=== PATIENT | female | born 1970 | race Caucasian/White ===

== ENCOUNTER 2016-07-06 13:47 | Emergency (ER) | payer OTHER ==
[~2016-07-06] VITALS: Ht 165.1 cm; Wt 61.1 kg
[~2016-07-06 13:47] MED LIST: ALBUTEROL SULF8.5 GM IH; AMPHETAMINE SAL20 MG PO; AMPHETAMINE SALT5 MG PO; ATARAX,VISTARIL25 MG PO; ATARAX,VISTARIL50 MG PO; ATORVASTATIN CA40 MG PO; AVENTYL,PAMELOR25 MG PO; Atarax,Vistaril PO; BACLOFEN20 MG PO; BACTRIM,SEPT1 TABLET PO; BENTYL20 MG PO; CEFDINIR300 MG PO; CLONAZEPAM1 MG PO; CLONIDINE HCL0.1 MG PO; CLOPIDOGREL75 MG PO; COLACE100 MG PO; COLD PACK1 EACH MC; CORTISONE57 GM TP; COUMADIN,JANTO7.5 MG PO; COUMADIN,JANTOV10 MG; COUMADIN,JANTOV10 MG PO; COUMADIN,JANTOVE4 MG PO; DIAZEPAM10 MG PO; DIAZEPAM5 MG PO; DICLOFENAC SODI50 MG PO; DOLOPHINE HCL10 MG PO; DOXYCYCLINE HY100 M3 PO; DURAGESIC1 EAC1; DURAGESIC25 MCG TD; FAMOTIDINE10 MG PO; FLEXERIL10 MG PO; FLEXERIL5 MG PO; GABAPENTIN100 M1 PO; GABAPENTIN300 MG PO; GABAPENTIN800 MG PO; HABITROL,NICODE21 MG TD; HYDROXYZINE HCL50 MG PO; KEFLEX500 MG PO; KLONOPIN0.5 M1 PO; KLONOPIN1 MG PO; KLONOPIN2 MG PO; Klonopin PO; LAMOTRIGINE25 M2 PO; LIDODERM 5% P1 PATCH TD; LIORESAL10 MG PO; LIPITOR20 MG PO; LOPRESSOR25 MG PO; LORAZEPAM1 MG PO; Lamotrigine PO; METHADONE; METHADONE H5 MG/5 ML PO; METHADONE HCL40 MG PO; METHADONE1 MG/1 ML PO; METHADONE10 MG PO; METHADONE10 MG/1 M1 PO; METOPROLOL SUCC50 MG PO; MIRALAX17 GM PO; MOTRIN600 MG PO; NAPROXEN500 MG PO; NEURONTIN300 MG PO; NEURONTIN400 M1 PO; NEURONTIN600 M1; NEURONTIN600 MG PO; NICOTINE PATCH1 EAC2 TD; NORTRIPTYLINE H25 MG PO; NORTRIPTYLINE HCL PO; Neurontin PO; OXYCODONE HCL5 M1 PO; PEPCID AC PO; PERCOCET 5/31 TABLET PO; PRAVASTATIN SOD80 MG PO; PREDNISONE10 MG PO; PREDNISONE20 MG PO; PROAIR HFA8.5 GM IH; PROVENTIL17 GM IH; QUETIAPINE FUM400 MG PO; SENOKOT8.6 MG PO; SEROQUEL XR400 MG PO; SEROQUEL100 MG PO; SEROQUEL200 MG PO; SEROQUEL400 MG; SEROQUEL400 MG PO; SIMVASTATIN5 MG PO; SINGULAIR10 MG PO; Singulair PO; TESSALON PERLE100 MG PO; TYLENOL WITH C1 EACH PO; VOLTAREN50 MG PO; WESTCORT15 G1 TP; ZANTAC150 M1 PO; ZANTAC150 MG PO; ZITHROMAX Z-PA250 MG PO; ZITHROMAX250 MG PO; ZOFRAN ODT4 MG PO; ZYRTEC10 M2 PO; Zocor PO
[2016-07-06 14:49] LABS: MCH 32.5 PG (29.0-34.0); MCHC 33.7 G/DL (30.0-36.0); MCV 96.4 FL (83-99); RBC DIS.WIDTH-SD 47.3 % (39-53); RED BLOOD COUNT 3.94 M/uL (3.80-5.20); WHITE BLOOD COUNT 5.3 K/uL (4.1-10.2)
[2016-07-06 14:51] LABS: MEAN PLAT.VOLUME 9.4 uM^3 (9.5-12.4)
[2016-07-06 14:56] LABS: PLATELET COUNT 296 K/uL (156-360)
[2016-07-06 14:57] LABS: CHLORIDE 106 mEq/L (99-109); POTASSIUM 3.8 mEq/L (3.7-5.4); SODIUM 139 mEq/L (136-147)
[2016-07-06 14:59] LABS: GLUCOSE 90 mg/dL (70-99)
[2016-07-06 15:00] LABS: ANION GAP 7 MEQ/L (2-14)
[2016-07-06 15:01] LABS: TOTAL BILIRUBIN 0.2 mg/dL (0.0-1.0)
[2016-07-06 15:02] LABS: SERUM ETHYL ALCOHOL < 10 mg/dL
[2016-07-06 15:03] LABS: ALKALINE PHOSPHATASE 153 IU/L (3-129); GFR ESTIMATE (CALCULATED) > 59 mL/min/
[2016-07-06 15:04] LABS: UREA NITROGEN (BUN) 7 mg/dL (9-23)
[2016-07-06 18:44] VITALS: BP 180/80
== END 2016-07-06 18:47 | disposition home or self-care (01) ==
LOC: EME 13:47
PROVIDERS: Emergency Medicine
DX: F11.20 Opioid dependence, uncomplicated (principal); F41.9 Anxiety disorder, unspecified; F17.200 Nicotine dependence, unspecified, uncomplicated; J45.909 Unspecified asthma, uncomplicated; Z86.73 Personal history of transient ischemic attack (TIA), and cerebral infarction without residual deficits; Z88.6 Allergy status to analgesic agent
CPT/HCPCS: 80053; 81003; 85027; 90837; 99281; 99285; G0480; J2310; J7030

== ENCOUNTER 2016-07-18 16:21 | Emergency (ER) | payer OTHER ==
[~2016-07-18] VITALS: Ht 170.2 cm; Wt 63.3 kg
[2016-07-18] MEDS ORDERED: SEROQUEL XR400 MG PO (16:41)
[2016-07-18 17:24] LABS: HEMATOCRIT 41.7 % (36.0-46.0); MCH 32.6 PG (29.0-34.0); MCHC 34.1 G/DL (30.0-36.0); MCV 95.6 FL (83-99); MEAN PLAT.VOLUME 9.5 uM^3 (9.5-12.4); PLATELET COUNT 252 K/uL (156-360); RBC DIS.WIDTH-CV 13.6 % (11.8-14.6); RBC DIS.WIDTH-SD 45.3 % (39-53); RED BLOOD COUNT 4.36 M/uL (3.80-5.20); WHITE BLOOD COUNT 6.7 K/uL (4.1-10.2)
[2016-07-18 17:41] LABS: CHLORIDE 102 mEq/L (99-109); POTASSIUM 3.7 mEq/L (3.7-5.4); SODIUM 140 mEq/L (136-147)
[2016-07-18 17:43] LABS: GLUCOSE 95 mg/dL (70-99)
[2016-07-18 17:44] LABS: ANION GAP 12 MEQ/L (2-14)
[2016-07-18 17:45] LABS: TOTAL BILIRUBIN 0.3 mg/dL (0.0-1.0)
[2016-07-18 17:46] LABS: SERUM ETHYL ALCOHOL < 10 mg/dL
[2016-07-18 17:47] LABS: ALKALINE PHOSPHATASE 112 IU/L (3-129); GFR ESTIMATE (CALCULATED) > 59 mL/min/
[2016-07-18 17:48] LABS: UREA NITROGEN (BUN) 13 mg/dL (9-23)
[2016-07-18 20:44] LABS: ADD MIUA? YES; BILIRUBIN NEGATIVE; BLOOD NEGATIVE; COLOR YELLOW ((YELLOW)); GLUCOSE (STRIP) NEGATIVE; KETONES NEGATIVE; LEUKOCYTES NEGATIVE; NITRITE NEGATIVE; PH, URINE 6.5 (5-8); PROTEIN (STRIP) TRACE; SPECIFIC GRAVITY 1.021 (1.000-1.030)
[2016-07-18 21:01] LABS: AMPHETAMINE NEGATIVE (500 ng/mL); BARBITURATES NEGATIVE (200 ng/mL); BENZODIAZEPINES NEGATIVE (150 ng/mL); COCAINE NEGATIVE (150 ng/mL); INTERNAL CONTROLS VALID? YES; METHADONE PRESUMPTIVE POSITIVE (200 ng/mL); METHAMPHETAMINE NEGATIVE (500 ng/mL); OPIATES (MORPHINE) NEGATIVE (100 ng/mL); OXYCODONE NEGATIVE (100 ng/mL); PHENCYCLIDINE NEGATIVE (25 ng/mL); PROPOXYPHENE NEGATIVE (300 ng/mL); THC CANNABINOIDS NEGATIVE (50 ng/mL); TRICYCLIC ANTIDEPRESSANTS PRESUMPTIVE POSITIVE (300 ng/mL)
[2016-07-18 21:14] LABS: BACTERIA 4+
[2016-07-18 21:15] LABS: CASTS NONE SEEN /LPF; CRYSTALS NONE SEEN; EPITHELIAL CELLS 1+; MUCUS 1+; RED BLOOD CELLS 0-5 /HPF (0-5); WHITE BLOOD CELLS 0-5 /HPF (0-5)
[2016-07-18 22:15] VITALS: BP 110/76
== END 2016-07-18 22:42 | disposition home or self-care (01) ==
LOC: EME → EDBD 16:21 → EME 16:21
PROVIDERS: Emergency Medicine
DX: G40.909 Epilepsy, unspecified, not intractable, without status epilepticus (principal); J45.909 Unspecified asthma, uncomplicated; Z95.1 Presence of aortocoronary bypass graft; Z86.73 Personal history of transient ischemic attack (TIA), and cerebral infarction without residual deficits; Z86.718 Personal history of other venous thrombosis and embolism; F17.200 Nicotine dependence, unspecified, uncomplicated
CPT/HCPCS: 70450; 80053; 81003; 85027; 93005; 99281; 99285; G0480; J7030

== ENCOUNTER 2016-08-20 11:48 | Emergency (ER) | payer OTHER ==
[~2016-08-20] VITALS: Ht 165.1 cm; Wt 63.6 kg
[2016-08-20 13:06] LABS: HEMATOCRIT 40.6 % (36.0-46.0); MCH 31.9 PG (29.0-34.0); MCHC 33.5 G/DL (30.0-36.0); MCV 95.3 FL (83-99); MEAN PLAT.VOLUME 9.6 uM^3 (9.5-12.4); PLATELET COUNT 273 K/uL (156-360); RBC DIS.WIDTH-CV 13.8 % (11.8-14.6); RED BLOOD COUNT 4.26 M/uL (3.80-5.20); WHITE BLOOD COUNT 7.3 K/uL (4.1-10.2)
[2016-08-20 13:18] LABS: CHLORIDE 101 mEq/L (99-109)
[2016-08-20 13:19] LABS: GLUCOSE 101 mg/dL (70-99); POTASSIUM 4.2 mEq/L (3.7-5.4); SODIUM 139 mEq/L (136-147)
[2016-08-20 13:21] LABS: ANION GAP 11 MEQ/L (2-14)
[2016-08-20 13:23] LABS: GFR ESTIMATE (CALCULATED) > 59 mL/min/
[2016-08-20 13:24] LABS: UREA NITROGEN (BUN) 10 mg/dL (9-23)
[2016-08-20 13:40] LABS: PHENOBARBITAL < 5.0 MCG/ML (15-40)
[2016-08-20 14:45] VITALS: BP 105/83
== END 2016-08-20 15:32 | disposition home or self-care (01) ==
LOC: EME 11:48
DX: R56.9 Unspecified convulsions (principal); F41.9 Anxiety disorder, unspecified; J45.909 Unspecified asthma, uncomplicated; I69.351 Hemiplegia and hemiparesis following cerebral infarction affecting right dominant side; Z86.718 Personal history of other venous thrombosis and embolism; Z95.1 Presence of aortocoronary bypass graft; F17.200 Nicotine dependence, unspecified, uncomplicated
CPT/HCPCS: 80048; 80156; 80184; 80185; 81003; 85027; 99281; 99285

== ENCOUNTER 2016-08-23 19:57 | Emergency (ER) | payer OTHER ==
[~2016-08-23] VITALS: Ht 162.6 cm; Wt 59.1 kg
[2016-08-23 21:21] LABS: EOSINOPHIL (%) 0.8 % (0-5); EOSINOPHIL COUNT 0.1 K/uL (0-0.3); HEMATOCRIT 38.6 % (36.0-46.0); IMMATURE GRANULOCYTE (%) 0.1 % (0.0-0.7); IMMATURE GRANULOCYTE COUNT 0.1 K/uL; LYMPHOCYTE COUNT 1.7 K/uL (1.0-2.8); MCH 32.4 PG (29.0-34.0); MCHC 34.2 G/DL (30.0-36.0); MCV 94.6 FL (83-99); MEAN PLAT.VOLUME 9.2 uM^3 (9.5-12.4); MONOCYTE (%) 6.6 % (3-12); MONOCYTE COUNT 0.5 K/uL (0-0.8); NEUTROPHIL (%) 69.2 % (45-76); NEUTROPHIL COUNT 5.1 K/uL (1.8-6.4); PLATELET COUNT 271 K/uL (156-360); RBC DIS.WIDTH-CV 13.9 % (11.8-14.6); RBC DIS.WIDTH-SD 46.1 % (39-53); RED BLOOD COUNT 4.08 M/uL (3.80-5.20); WHITE BLOOD COUNT 7.4 K/uL (4.1-10.2)
[2016-08-23 21:31] LABS: CHLORIDE 104 mEq/L (99-109); POTASSIUM 3.7 mEq/L (3.7-5.4); SODIUM 142 mEq/L (136-147)
[2016-08-23 21:34] LABS: GLUCOSE 112 mg/dL (70-99)
[2016-08-23 21:35] LABS: ANION GAP 11 MEQ/L (2-14)
[2016-08-23 21:36] LABS: TOTAL BILIRUBIN 0.4 mg/dL (0.0-1.0)
[2016-08-23 21:37] LABS: SERUM ETHYL ALCOHOL < 10 mg/dL
[2016-08-23 21:38] LABS: ALKALINE PHOSPHATASE 99 IU/L (3-129); GFR ESTIMATE (CALCULATED) > 59 mL/min/
[2016-08-23 21:39] LABS: UREA NITROGEN (BUN) 14 mg/dL (9-23)
[2016-08-23 21:41] LABS: SALICYLATE < 5.0 MG/DL (15-30)
[2016-08-23 21:49] LABS: QUANTITATIVE HCG < 4.0 MIU/ML
[2016-08-23 23:03] LABS: ADD MIUA? YES; BILIRUBIN NEGATIVE; BLOOD NEGATIVE; COLOR YELLOW ((YELLOW)); GLUCOSE (STRIP) NEGATIVE; KETONES NEGATIVE; LEUKOCYTES TRACE; NITRITE NEGATIVE; PROTEIN (STRIP) 30; SPECIFIC GRAVITY 1.025 (1.000-1.030); UROBILINOGEN 0.2 MG/DL (0.2-1.0)
[2016-08-23 23:14] LABS: PHENCYCLIDINE NEGATIVE (25 ng/mL); THC CANNABINOIDS NEGATIVE (50 ng/mL)
[2016-08-23 23:15] LABS: AMPHETAMINE PRESUMPTIVE POSITIVE (500 ng/mL); BARBITURATES NEGATIVE (200 ng/mL); BENZODIAZEPINES NEGATIVE (150 ng/mL); COCAINE NEGATIVE (150 ng/mL); INTERNAL CONTROLS VALID? YES; METHADONE PRESUMPTIVE POSITIVE (200 ng/mL); METHAMPHETAMINE NEGATIVE (500 ng/mL); OPIATES (MORPHINE) NEGATIVE (100 ng/mL); OXYCODONE NEGATIVE (100 ng/mL); PROPOXYPHENE NEGATIVE (300 ng/mL); TRICYCLIC ANTIDEPRESSANTS PRESUMPTIVE POSITIVE (300 ng/mL)
[2016-08-23 23:16] LABS: ADD MEDTOX COMMENT Y
[2016-08-23 23:34] LABS: BACTERIA RARE /HPF; EPITHELIAL CELLS RARE /HPF; MUCUS TRACE /LPF; RED BLOOD CELLS 0-5 /HPF (0-5); UCUL ADDED? NO; WHITE BLOOD CELLS 0-5 /HPF (0-5)
[2016-08-24 01:37] VITALS: BP 113/76
== END 2016-08-24 02:07 | disposition home or self-care (01) ==
LOC: EME → EDBD 19:57 → EME 19:57
PROVIDERS: Emergency Medicine
DX: R41.82 Altered mental status, unspecified (principal); F31.9 Bipolar disorder, unspecified; F41.9 Anxiety disorder, unspecified; G40.909 Epilepsy, unspecified, not intractable, without status epilepticus
CPT/HCPCS: 70450; 80053; 81003; 84702; 84999; 85025; 90837; 99281; 99285; G0480; J2060

== ENCOUNTER 2016-08-26 10:04 | Emergency (ER) | payer OTHER ==
[~2016-08-26] VITALS: Ht 162.6 cm; Wt 60.7 kg
[2016-08-26 10:42] LABS: HEMATOCRIT 39.4 % (36.0-46.0); MCH 32.1 PG (29.0-34.0); MCHC 33.5 G/DL (30.0-36.0); MCV 95.9 FL (83-99); MEAN PLAT.VOLUME 9.6 uM^3 (9.5-12.4); PLATELET COUNT 252 K/uL (156-360); RBC DIS.WIDTH-SD 46.9 % (39-53); RED BLOOD COUNT 4.11 M/uL (3.80-5.20); WHITE BLOOD COUNT 5.3 K/uL (4.1-10.2)
[2016-08-26 10:50] LABS: CHLORIDE 108 mEq/L (99-109); POTASSIUM 3.4 mEq/L (3.7-5.4); SODIUM 142 mEq/L (136-147)
[2016-08-26 10:53] LABS: GLUCOSE 116 mg/dL (70-99)
[2016-08-26 10:54] LABS: ANION GAP 9 MEQ/L (2-14)
[2016-08-26 10:55] LABS: SERUM ETHYL ALCOHOL < 10 mg/dL
[2016-08-26 10:56] LABS: ALKALINE PHOSPHATASE 103 IU/L (3-129); GFR ESTIMATE (CALCULATED) > 59 mL/min/
[2016-08-26 10:57] LABS: UREA NITROGEN (BUN) 17 mg/dL (9-23)
[2016-08-26 11:00] LABS: TOTAL BILIRUBIN 0.5 mg/dL (0.0-1.0)
[2016-08-26 12:37] VITALS: BP 111/65
== END 2016-08-26 12:38 | disposition home or self-care (01) ==
LOC: EME 10:04
PROVIDERS: Emergency Medicine
DX: F41.1 Generalized anxiety disorder (principal)
CPT/HCPCS: 80053; 81003; 85027; 99281; 99284; G0480

== ENCOUNTER 2016-12-18 02:17 | Emergency (ER) | payer OTHER ==
[~2016-12-18] VITALS: Ht 165.1 cm; Wt 60.8 kg
[2016-12-18 03:06] LABS: HEMATOCRIT 39.3 % (36.0-46.0); MCH 32.4 PG (29.0-34.0); MCHC 34.4 G/DL (30.0-36.0); MCV 94.2 FL (83-99); MEAN PLAT.VOLUME 10.1 uM^3 (9.5-12.4); PLATELET COUNT 333 K/uL (156-360); RBC DIS.WIDTH-CV 13.2 % (11.8-14.6); RBC DIS.WIDTH-SD 45.4 % (39-53); RED BLOOD COUNT 4.17 M/uL (3.80-5.20); WHITE BLOOD COUNT 10.1 K/uL (4.1-10.2)
[2016-12-18 03:19] LABS: CHLORIDE 103 mEq/L (99-109); POTASSIUM 3.1 mEq/L (3.7-5.4); SODIUM 139 mEq/L (136-147)
[2016-12-18 03:21] LABS: GLUCOSE 110 mg/dL (70-99)
[2016-12-18 03:22] LABS: ANION GAP 11 MEQ/L (2-14)
[2016-12-18 03:23] LABS: TOTAL BILIRUBIN 0.2 mg/dL (0.0-1.0)
[2016-12-18 03:24] LABS: SERUM ETHYL ALCOHOL < 10 mg/dL
[2016-12-18 03:25] LABS: ALKALINE PHOSPHATASE 109 IU/L (3-129); GFR ESTIMATE (CALCULATED) > 59 mL/min/
[2016-12-18 03:27] LABS: UREA NITROGEN (BUN) 12 mg/dL (9-23)
[2016-12-18 03:28] LABS: SALICYLATE < 5.0 MG/DL (15-30)
[2016-12-18 03:29] LABS: LIPASE 35 U/L (1.0-51.0)
[2016-12-18 03:37] LABS: QUANTITATIVE HCG < 4.0 MIU/ML
[2016-12-18 04:49] LABS: ADD MIUA? NO; BILIRUBIN NEGATIVE; BLOOD NEGATIVE; COLOR YELLOW ((YELLOW)); GLUCOSE (STRIP) NEGATIVE; KETONES 5; LEUKOCYTES NEGATIVE; NITRITE NEGATIVE; PROTEIN (STRIP) NEGATIVE; SPECIFIC GRAVITY 1.023 (1.000-1.030); UCUL ADDED? NO; UROBILINOGEN 0.2 MG/DL (0.2-1.0)
[2016-12-18 05:00] LABS: AMPHETAMINE PRESUMPTIVE POSITIVE (500 ng/mL); BARBITURATES NEGATIVE (200 ng/mL); BENZODIAZEPINES NEGATIVE (150 ng/mL); COCAINE NEGATIVE (150 ng/mL); INTERNAL CONTROLS VALID? YES; METHADONE PRESUMPTIVE POSITIVE (200 ng/mL); METHAMPHETAMINE NEGATIVE (500 ng/mL); OPIATES (MORPHINE) NEGATIVE (100 ng/mL); OXYCODONE NEGATIVE (100 ng/mL); PHENCYCLIDINE NEGATIVE (25 ng/mL); PROPOXYPHENE NEGATIVE (300 ng/mL); THC CANNABINOIDS NEGATIVE (50 ng/mL); TRICYCLIC ANTIDEPRESSANTS NEGATIVE (300 ng/mL)
[2016-12-18 05:01] LABS: ADD MEDTOX COMMENT Y
[2016-12-18 08:11] VITALS: BP 100/60
== END 2016-12-18 08:11 | disposition home or self-care (01) ==
LOC: EME 02:17
PROVIDERS: Emergency Medicine
DX: F11.23 Opioid dependence with withdrawal (principal); F19.10 Other psychoactive substance abuse, uncomplicated; F31.30 Bipolar disorder, current episode depressed, mild or moderate severity, unspecified; J45.909 Unspecified asthma, uncomplicated; R56.9 Unspecified convulsions; Z86.73 Personal history of transient ischemic attack (TIA), and cerebral infarction without residual deficits; Z86.718 Personal history of other venous thrombosis and embolism; Z95.1 Presence of aortocoronary bypass graft; F17.200 Nicotine dependence, unspecified, uncomplicated
CPT/HCPCS: 74177; 80053; 81003; 83690; 84702; 84999; 85027; 93005; 99281; 99284; G0480; J2405; J7030

== ENCOUNTER 2016-12-24 23:11 | Emergency (ER) | payer OTHER ==
[~2016-12-24] VITALS: Ht 165.1 cm; Wt 61.3 kg
[2016-12-25 00:07] LABS: BASOPHIL COUNT 0.1 K/uL (0-0.1); EOSINOPHIL (%) 1.5 % (0-5); EOSINOPHIL COUNT 0.1 K/uL (0-0.3); HEMATOCRIT 38.7 % (36.0-46.0); IMMATURE GRANULOCYTE (%) 0.3 % (0.0-0.7); INSTRUMENT ABS NEUTROPHIL CT 5.8 K/uL; LYMPHOCYTE COUNT 2.3 K/uL (1.0-2.8); MCH 32.2 PG (29.0-34.0); MCHC 33.3 G/DL (30.0-36.0); MCV 96.5 FL (83-99); MEAN PLAT.VOLUME 9.3 uM^3 (9.5-12.4); MONOCYTE (%) 5.6 % (3-12); MONOCYTE COUNT 0.5 K/uL (0-0.8); NEUTROPHIL (%) 65.9 % (45-76); NEUTROPHIL COUNT 5.8 K/uL (1.8-6.4); PLATELET COUNT 278 K/uL (156-360); RBC DIS.WIDTH-CV 13.9 % (11.8-14.6); RBC DIS.WIDTH-SD 49.4 % (39-53); RED BLOOD COUNT 4.01 M/uL (3.80-5.20); WHITE BLOOD COUNT 8.7 K/uL (4.1-10.2)
[2016-12-25 00:19] LABS: INTER. NORMALIZED RATIO 1.1; PTT 27.5 (25-32)
[2016-12-25 00:22] LABS: CHLORIDE 99 mEq/L (99-109); POTASSIUM 3.3 mEq/L (3.7-5.4); SODIUM 138 mEq/L (136-147)
[2016-12-25 00:23] LABS: GLUCOSE 127 mg/dL (70-99)
[2016-12-25 00:25] LABS: ANION GAP 11 MEQ/L (2-14)
[2016-12-25 00:27] LABS: GFR ESTIMATE (CALCULATED) > 59 mL/min/
[2016-12-25 00:28] LABS: UREA NITROGEN (BUN) 11 mg/dL (9-23)
[2016-12-25 00:34] LABS: TROP-I INTERPRETATION NEGATIVE; TROPONIN-I < 0.01 ng/mL (0.0-0.30)
[2016-12-25 01:29] LABS: ADD MIUA? YES; BILIRUBIN NEGATIVE; BLOOD NEGATIVE; COLOR YELLOW ((YELLOW)); GLUCOSE (STRIP) NEGATIVE; KETONES NEGATIVE; LEUKOCYTES NEGATIVE; NITRITE NEGATIVE; PROTEIN (STRIP) 30; SPECIFIC GRAVITY 1.015 (1.000-1.030); UROBILINOGEN 0.2 MG/DL (0.2-1.0)
[2016-12-25 01:37] LABS: BACTERIA 1+ /HPF; EPITHELIAL CELLS 2+ /HPF; MUCUS TRACE /LPF; RED BLOOD CELLS 0-5 /HPF (0-5); UCUL ADDED? NO; WHITE BLOOD CELLS 0-5 /HPF (0-5)
[2016-12-25] MEDS ORDERED: NEURONTIN600 MG PO (01:48)
[2016-12-25] MEDS ORDERED: ATIVAN1 MG PO (01:48)
[2016-12-25 02:08] LABS: HDL CHOLESTEROL 47 MG/DL (Desirable>=50); LDL CHOLESTEROL 126 mg/dL (Desirable<100); NON-HDL CHOLESTEROL 154 mg/dL (Desirable<160); TOTAL CHOLESTEROL 201 mg/dL (Desirable<200); TRIGLYCERIDES 139 MG/DL (Normal: <150)
[2016-12-25 02:16] VITALS: BP 98/55
[2016-12-25 06:58] LABS: Estimated Average Glucose 114 mg/dL (70-123); HEMOGLOBIN A1c (GLYCOHEMOGLOB) 5.6 % HGB (Below 5.7)
== END 2016-12-25 02:18 | disposition home or self-care (01) ==
LOC: EME 23:11
PROVIDERS: Emergency Medicine
DX: F41.9 Anxiety disorder, unspecified (principal); F43.9 Reaction to severe stress, unspecified; F31.9 Bipolar disorder, unspecified; J45.909 Unspecified asthma, uncomplicated; I69.351 Hemiplegia and hemiparesis following cerebral infarction affecting right dominant side; Z95.1 Presence of aortocoronary bypass graft; Z86.718 Personal history of other venous thrombosis and embolism; F17.200 Nicotine dependence, unspecified, uncomplicated; F11.20 Opioid dependence, uncomplicated
CPT/HCPCS: 71010; 80048; 80061; 81003; 83036; 84484; 85025; 85610; 85730; 93005; 93970; 99281; 99285

== ENCOUNTER 2017-05-14 13:19 | Inpatient (IN) | payer OTHER ==
[~2017-05-14] VITALS: Ht 165.1 cm; Wt 69.7 kg
[~2017-05-14 13:19] MED LIST changes: +ATIVAN1 MG PO; +NEURONTIN800 MG PO
[2017-05-14 14:41] LABS: EOSINOPHIL (%) 2.7 % (0-5); EOSINOPHIL COUNT 0.2 K/uL (0-0.3); HEMATOCRIT 40.1 % (36.0-46.0); IMMATURE GRANULOCYTE (%) 0.4 % (0.0-0.7); INSTRUMENT ABS NEUTROPHIL CT 3.4 K/uL; LYMPHOCYTE COUNT 1.6 K/uL (1.0-2.8); MCH 31.4 PG (29.0-34.0); MCHC 33.2 G/DL (30.0-36.0); MCV 94.6 FL (83-99); MEAN PLAT.VOLUME 9.7 uM^3 (9.5-12.4); MONOCYTE (%) 6.8 % (3-12); MONOCYTE COUNT 0.4 K/uL (0-0.8); NEUTROPHIL (%) 61.1 % (45-76); NEUTROPHIL COUNT 3.4 K/uL (1.8-6.4); PLATELET COUNT 253 K/uL (156-360); RBC DIS.WIDTH-CV 12.7 % (11.8-14.6); RBC DIS.WIDTH-SD 44.4 % (39-53); RED BLOOD COUNT 4.24 M/uL (3.80-5.20); WHITE BLOOD COUNT 5.6 K/uL (4.1-10.2)
[2017-05-14 14:49] LABS: CHLORIDE 102 mEq/L (99-109); POTASSIUM 3.8 mEq/L (3.7-5.4); SODIUM 140 mEq/L (136-147)
[2017-05-14 14:51] LABS: GLUCOSE 100 mg/dL (70-99)
[2017-05-14 14:52] LABS: ANION GAP 9 MEQ/L (2-14)
[2017-05-14 14:54] LABS: SERUM ETHYL ALCOHOL < 10 mg/dL
[2017-05-14 14:55] LABS: GFR ESTIMATE (CALCULATED) > 59 mL/min/
[2017-05-14 14:56] LABS: UREA NITROGEN (BUN) 11 mg/dL (9-23)
[2017-05-14] MEDS ORDERED: PLAVIX75 MG PO (15:13)
[2017-05-14] MEDS ORDERED: LIPITOR40 MG PO (15:14)
[2017-05-14] MEDS ORDERED: METHADONE1 MG/1 ML PO (15:15)
[2017-05-14] MEDS ORDERED: KLONOPIN1 MG PO (15:16)
[2017-05-14] MEDS ORDERED: ADDERALL20 MG PO (15:18)
[2017-05-14 18:14] LABS: ADD MIUA? YES; BILIRUBIN SMALL; BLOOD NEGATIVE; COLOR AMBER ((YELLOW)); GLUCOSE (STRIP) NEGATIVE; KETONES 5; LEUKOCYTES TRACE; NITRITE NEGATIVE; PROTEIN (STRIP) 100; SPECIFIC GRAVITY 1.029 (1.000-1.030)
[2017-05-14 18:19] LABS: INTERNAL CONTROL VALID? YES
[2017-05-14 18:23] LABS: UCUL ADDED? NO
[2017-05-14 18:42] LABS: AMPHETAMINE PRESUMPTIVE POSITIVE (500 ng/mL); BARBITURATES NEGATIVE (200 ng/mL); BENZODIAZEPINES PRESUMPTIVE POSITIVE (150 ng/mL); COCAINE PRESUMPTIVE POSITIVE (150 ng/mL); INTERNAL CONTROLS VALID? YES; METHADONE PRESUMPTIVE POSITIVE (200 ng/mL); METHAMPHETAMINE NEGATIVE (500 ng/mL); OPIATES (MORPHINE) NEGATIVE (100 ng/mL); OXYCODONE NEGATIVE (100 ng/mL); PHENCYCLIDINE NEGATIVE (25 ng/mL); PROPOXYPHENE NEGATIVE (300 ng/mL); THC CANNABINOIDS NEGATIVE (50 ng/mL); TRICYCLIC ANTIDEPRESSANTS PRESUMPTIVE POSITIVE (300 ng/mL)
[2017-05-14 18:43] LABS: ADD MEDTOX COMMENT Y
[2017-05-14 18:53] LABS: THC CANNABINOIDS ND (50 ng/mL)
[2017-05-14 18:55] LABS: AMPHETAMINE ND (500 ng/mL); COCAINE ND (150 ng/mL); METHAMPHETAMINE ND (500 ng/mL); OPIATES (MORPHINE) ND (100 ng/mL); PHENCYCLIDINE ND (25 ng/mL)
[2017-05-14 18:56] LABS: BARBITURATES ND (200 ng/mL); BENZODIAZEPINES ND (150 ng/mL); INTERNAL CONTROLS VALID? ND; METHADONE ND (200 ng/mL); OXYCODONE ND (100 ng/mL); PROPOXYPHENE ND (300 ng/mL); TRICYCLIC ANTIDEPRESSANTS ND (300 ng/mL)
[2017-05-14 18:57] LABS: MEDTOX DRUG SCREEN COMMENT ND
[2017-05-14 19:28] LABS: BENZODIAZEPINES, URINE SCREEN POSITIVE (200 ng/mL)
[2017-05-14 19:35] VITALS: BP 101/58
[2017-05-14] MEDS ORDERED: VENTOLIN HFA18 GM IH (20:05)
[2017-05-15 07:48] VITALS: BP 94/52
[2017-05-15 09:04] VITALS: BP 96/53
[2017-05-15 15:20] VITALS: BP 99/63
[2017-05-16 07:29] VITALS: BP 91/58
[2017-05-16 15:21] VITALS: BP 96/59
[2017-05-17 07:48] VITALS: BP 99/55
[2017-05-17 16:09] VITALS: BP 90/52
[2017-05-18 07:37] VITALS: BP 101/55
[2017-05-18 16:01] VITALS: BP 122/70
[2017-05-19 07:55] VITALS: BP 96/54
[2017-05-19 15:39] VITALS: BP 79/44
[2017-05-20 07:33] VITALS: BP 91/54
[2017-05-20 11:54] VITALS: BP 89/50
[2017-05-20 15:30] VITALS: BP 85/59
[2017-05-21 06:52] VITALS: BP 90/51
[2017-05-21 12:08] VITALS: BP 120/55
[2017-05-21 15:27] VITALS: BP 95/53
[2017-05-22 07:46] VITALS: BP 96/58
[2017-05-22 14:59] VITALS: BP 101/59
[2017-05-23 07:55] VITALS: BP 92/46
[2017-05-23 12:37] VITALS: BP 112/61
[2017-05-23 15:20] VITALS: BP 93/51
[2017-05-23 18:55] VITALS: BP 93/55
[2017-05-24 07:42] VITALS: BP 98/57
[2017-05-24 15:58] VITALS: BP 105/58
[2017-05-24 21:27] VITALS: BP 109/65
[2017-05-25 07:50] VITALS: BP 90/53
[2017-05-25 15:54] VITALS: BP 85/54
[2017-05-26 07:50] VITALS: BP 104/58
[2017-05-26 11:46] VITALS: BP 89/59
[2017-05-26 16:20] VITALS: BP 100/57
[2017-05-27 07:53] VITALS: BP 104/63
[2017-05-27 15:22] VITALS: BP 82/51
[2017-05-27 21:08] VITALS: BP 94/53
[2017-05-28 07:47] VITALS: BP 85/52
[2017-05-28 11:30] VITALS: BP 108/64
[2017-05-28 15:19] VITALS: BP 87/52
[2017-05-28 21:14] VITALS: BP 97/55
[2017-05-29 07:54] VITALS: BP 84/51
[2017-05-29 09:22] VITALS: BP 106/66
[2017-05-29 15:43] VITALS: BP 106/61
[2017-05-30 07:59] VITALS: BP 97/63
[2017-05-30 14:56] VITALS: BP 95/56
[2017-05-31 07:18] VITALS: BP 89/54
[2017-05-31 15:34] VITALS: BP 89/55
[2017-05-31 19:23] VITALS: BP 105/64
[2017-06-01 07:50] VITALS: BP 101/61
[2017-06-01 15:55] VITALS: BP 91/53
[2017-06-01 19:34] VITALS: BP 103/62
[2017-06-02 07:45] VITALS: BP 79/51
[2017-06-02 15:26] VITALS: BP 109/60
[2017-06-03 07:42] VITALS: BP 96/56
[2017-06-03 15:29] VITALS: BP 113/64
[2017-06-04 07:59] VITALS: BP 95/56
[2017-06-04 15:34] VITALS: BP 132/78
[2017-06-05 07:25] VITALS: BP 109/63
[2017-06-05] MEDS ORDERED: FLUOXETINE HCL20 MG PO (10:28)
[2017-06-05] MEDS ORDERED: GABAPENTIN400 MG PO (10:28)
[2017-06-05] MEDS ORDERED: METOPROLOL SUCC25 MG PO (10:28)
[2017-06-05] MEDS ORDERED: AMPHETAMINE SALT5 MG PO (10:28)
[2017-06-05] MEDS ORDERED: CLONAZEPAM0.5 MG PO (10:28)
[2017-06-05] MEDS ORDERED: LIPITOR40 MG PO (10:28)
[2017-06-05] MEDS ORDERED: VENTOLIN HFA18 GM IH (10:28)
== END 2017-06-05 11:58 | disposition home or self-care (01) | DRG 885 ==
LOC: EME 13:19 → 1WEST 14:47 → EDOF 14:47 → 1WEST 14:47 → ENRESERV 18:20 → 1WEST 19:29
PROVIDERS: Emergency Medicine; Psychiatry & Neurology Psychiatry
DX: F33.1 Major depressive disorder, recurrent, moderate (principal); R45.851 Suicidal ideations; F11.20 Opioid dependence, uncomplicated; I69.351 Hemiplegia and hemiparesis following cerebral infarction affecting right dominant side; F14.129 Cocaine abuse with intoxication, unspecified; F60.7 Dependent personality disorder; F43.23 Adjustment disorder with mixed anxiety and depressed mood; J44.9 Chronic obstructive pulmonary disease, unspecified; F17.210 Nicotine dependence, cigarettes, uncomplicated; R45.4 Irritability and anger; M79.7 Fibromyalgia; G40.909 Epilepsy, unspecified, not intractable, without status epilepticus; I10 Essential (primary) hypertension; H02.402 Unspecified ptosis of left eyelid; Z59.0 Homelessness; Z79.51 Long term (current) use of inhaled steroids; Z91.14 Patient's other noncompliance with medication regimen; Z88.5 Allergy status to narcotic agent; Z63.4 Disappearance and death of family member; I69.398 Other sequelae of cerebral infarction; I69.392 Facial weakness following cerebral infarction; Z86.718 Personal history of other venous thrombosis and embolism; Z87.442 Personal history of urinary calculi; Z88.6 Allergy status to analgesic agent; Z95.1 Presence of aortocoronary bypass graft; Z98.51 Tubal ligation status; Z56.0 Unemployment, unspecified; Z81.8 Family history of other mental and behavioral disorders
CPT/HCPCS: 80048; 81003; 84703; 84999; 85025; 90839; 93005; 97150 GO; 99202; 99281; 99285; G0480; Q0177

== ENCOUNTER 2017-07-02 22:36 | Emergency (ER) | payer OTHER ==
[~2017-07-02] VITALS: Ht 165.1 cm; Wt 70.4 kg
[~2017-07-02 22:36] MED LIST changes: +ADDERALL20 MG PO; +CLONAZEPAM0.5 MG PO; +FLUOXETINE HCL20 MG PO; +GABAPENTIN400 MG PO; +LIPITOR40 MG PO; +METOPROLOL SUCC25 MG PO; +PLAVIX75 MG PO; +VENTOLIN HFA18 GM IH
[2017-07-03] MEDS ORDERED: KEFLEX500 MG PO (03:35)
[2017-07-03 03:42] VITALS: BP 104/69
== END 2017-07-03 03:49 | disposition home or self-care (01) ==
LOC: EME 22:36
DX: M54.5 Low back pain (principal); R07.81 Pleurodynia; W18.39XA Other fall on same level, initial encounter; Y92.512 Supermarket, store or market as the place of occurrence of the external cause; S61.012A Laceration without foreign body of left thumb without damage to nail, initial encounter; L08.9 Local infection of the skin and subcutaneous tissue, unspecified; W45.8XXA Other foreign body or object entering through skin, initial encounter; R42 Dizziness and giddiness; M51.36 Other intervertebral disc degeneration, lumbar region; Z86.73 Personal history of transient ischemic attack (TIA), and cerebral infarction without residual deficits; Z87.442 Personal history of urinary calculi; Z95.1 Presence of aortocoronary bypass graft; Z86.718 Personal history of other venous thrombosis and embolism; F17.200 Nicotine dependence, unspecified, uncomplicated
CPT/HCPCS: 72100; 99281; 99284

== ENCOUNTER 2017-08-20 13:29 | Observation (INO) | payer OTHER ==
[~2017-08-20] VITALS: Ht 165.1 cm; Wt 65.8 kg
[2017-08-20 14:13] LABS: HEMATOCRIT 41.8 % (36.0-46.0); HEMOGLOBIN 14.3 G/DL (11.9-15.5); MCH 31.4 PG (29.0-34.0); MCHC 34.2 G/DL (30.0-36.0); MCV 91.7 FL (83-99); PLATELET COUNT 286 K/uL (156-360); RBC DIS.WIDTH-CV 13.1 % (11.8-14.6); RBC DIS.WIDTH-SD 44.3 % (39-53); RED BLOOD COUNT 4.56 M/uL (3.80-5.20); WHITE BLOOD COUNT 6.4 K/uL (4.1-10.2)
[2017-08-20 14:21] LABS: ALBUMIN 4.6 g/dL (3.2-4.8); CHLORIDE 100 mEq/L (99-109); POTASSIUM 3.9 mEq/L (3.7-5.4); SODIUM 138 mEq/L (136-147)
[2017-08-20 14:24] LABS: GLUCOSE 122 mg/dL (70-99); TOTAL PROTEIN 7.6 g/dL (6.4-8.3)
[2017-08-20 14:26] LABS: TOTAL BILIRUBIN 0.5 mg/dL (0.0-1.0)
[2017-08-20 14:27] LABS: ALKALINE PHOSPHATASE 127 IU/L (3-129)
[2017-08-20 14:28] LABS: CREATININE 0.8 mg/dL (0.6-1.3); GFR ESTIMATE (CALCULATED) > 59 mL/min/
[2017-08-20 14:29] LABS: AST (GOT) 24 IU/L (2-34); UREA NITROGEN (BUN) 12 mg/dL (9-23)
[2017-08-20 14:31] LABS: ALT (GPT) 34 IU/L (3-49)
[2017-08-20] MEDS ORDERED: FLUOXETINE HCL60 MG PO (17:24)
[2017-08-20] MEDS ORDERED: ADDERALL20 MG PO (17:24)
[2017-08-20] MEDS ORDERED: WELLBUTRIN XL300 MG PO (17:25)
[2017-08-20] MEDS ORDERED: NICODERM CQ1 EACH TD (17:25)
[2017-08-20] MEDS ORDERED: METOPROLOL SUCC50 MG PO (17:26)
[2017-08-20 20:30] VITALS: BP 104/662
[2017-08-20 23:51] VITALS: BP 101/67
[2017-08-21 03:38] VITALS: BP 101/68
[2017-08-21 06:40] LABS: HEMATOCRIT 40.2 % (36.0-46.0); HEMOGLOBIN 13.7 G/DL (11.9-15.5); MCH 31.8 PG (29.0-34.0); MCHC 34.1 G/DL (30.0-36.0); MCV 93.3 FL (83-99); PLATELET COUNT 241 K/uL (156-360); RBC DIS.WIDTH-CV 13.2 % (11.8-14.6); RBC DIS.WIDTH-SD 45.8 % (39-53); RED BLOOD COUNT 4.31 M/uL (3.80-5.20); WHITE BLOOD COUNT 9.3 K/uL (4.1-10.2)
[2017-08-21 07:01] LABS: CHLORIDE 104 MEQ/L (99-109); CREATININE 0.7 MG/DL (0.6-1.3); GFR ESTIMATE (CALCULATED) > 59 mL/min/; GLUCOSE 98 mg/dL (70-99); POTASSIUM 3.5 MEQ/L (3.7-5.4); SODIUM 141 MEQ/L (136-147); UREA NITROGEN (BUN) 12 mg/dL (9-23)
[2017-08-21 09:25] VITALS: BP 99/56
[2017-08-21 11:57] VITALS: BP 80/48
[2017-08-21] MEDS ORDERED: METOPROLOL SUCC25 MG PO (12:03)
[2017-08-21 16:39] VITALS: BP 85/52
[2017-08-21 19:30] VITALS: BP 98/65
[2017-08-22 00:34] VITALS: BP 89/50
[2017-08-22 03:55] VITALS: BP 95/54
[2017-08-22 08:00] VITALS: BP 119/70
[2017-08-22 11:31] VITALS: BP 103/59
[2017-08-22] MEDS ORDERED: FLUOXETINE HCL60 MG PO (15:23)
[2017-08-22] MEDS ORDERED: WELLBUTRIN XL300 MG PO (15:23)
[2017-08-22] MEDS ORDERED: GABAPENTIN400 MG PO (15:23)
[2017-08-22] MEDS ORDERED: SEROQUEL400 MG PO (15:23)
[2017-08-22 15:51] LABS: BENZODIAZEPINES, URINE SCREEN Negative (200 ng/mL)
== END 2017-08-22 16:54 | disposition home or self-care (01) ==
LOC: EME 13:29 → 5WEST 17:58 → EDOF 17:58 → ENRESERV 18:11 → 5WEST 20:12 → ENPENDDIS 08-22 → 5WEST 08-22 16:54
PROVIDERS: Emergency Medicine; Hospitalist
PROC: 0HQ0XZZ Repair Scalp Skin, External Approach (ICD-10-PCS; principal; 2017-08-20)
DX: G40.909 Epilepsy, unspecified, not intractable, without status epilepticus (principal); S01.01XA Laceration without foreign body of scalp, initial encounter; W06.XXXA Fall from bed, initial encounter; Y92.230 Patient room in hospital as the place of occurrence of the external cause; F31.9 Bipolar disorder, unspecified; Z86.73 Personal history of transient ischemic attack (TIA), and cerebral infarction without residual deficits; Q21.1 Atrial septal defect; F11.20 Opioid dependence, uncomplicated; F41.9 Anxiety disorder, unspecified; Z91.14 Patient's other noncompliance with medication regimen; F17.200 Nicotine dependence, unspecified, uncomplicated; I10 Essential (primary) hypertension; Z86.718 Personal history of other venous thrombosis and embolism; J44.9 Chronic obstructive pulmonary disease, unspecified; Z88.5 Allergy status to narcotic agent; Z88.6 Allergy status to analgesic agent; Z82.49 Family history of ischemic heart disease and other diseases of the circulatory system; E78.5 Hyperlipidemia, unspecified
CPT/HCPCS: 70450; 71046; 80048; 80053; 80306 90; 81003; 82948; 83605; 85027; 87502; 99281; 99285; G0378; J1650; J1953; J2060; J2270; J2405; J7030; J7050

== ENCOUNTER 2017-10-01 16:04 | Emergency (ER) | payer OTHER ==
[~2017-10-01] VITALS: Ht 165.1 cm; Wt 69.9 kg
[~2017-10-01 16:04] MED LIST changes: +FLUOXETINE HCL60 MG PO; +NICODERM CQ1 EACH TD; +WELLBUTRIN XL300 MG PO
[2017-10-01 18:01] VITALS: BP 118/61
== END 2017-10-01 19:10 | disposition home or self-care (01) ==
LOC: EME 16:04
DX: F33.1 Major depressive disorder, recurrent, moderate (principal); K21.9 Gastro-esophageal reflux disease without esophagitis; J45.909 Unspecified asthma, uncomplicated; I69.351 Hemiplegia and hemiparesis following cerebral infarction affecting right dominant side; F31.9 Bipolar disorder, unspecified; F41.9 Anxiety disorder, unspecified; F17.200 Nicotine dependence, unspecified, uncomplicated; Z79.891 Long term (current) use of opiate analgesic; Z95.1 Presence of aortocoronary bypass graft; Z86.718 Personal history of other venous thrombosis and embolism; Z86.79 Personal history of other diseases of the circulatory system; Z87.442 Personal history of urinary calculi; Z88.5 Allergy status to narcotic agent; Z88.6 Allergy status to analgesic agent
CPT/HCPCS: 90839; 99281; 99283

== ENCOUNTER 2017-10-02 03:46 | Emergency (ER) | payer OTHER ==
[~2017-10-02] VITALS: Ht 165.1 cm; Wt 70.6 kg
[2017-10-02 05:27] VITALS: BP 101/56
== END 2017-10-02 05:28 | disposition home or self-care (01) ==
LOC: EME 03:46
DX: F32.9 Major depressive disorder, single episode, unspecified (principal); Z04.6 Encounter for general psychiatric examination, requested by authority; I69.951 Hemiplegia and hemiparesis following unspecified cerebrovascular disease affecting right dominant side; J45.909 Unspecified asthma, uncomplicated; Z59.0 Homelessness; K21.9 Gastro-esophageal reflux disease without esophagitis; F41.9 Anxiety disorder, unspecified; F17.200 Nicotine dependence, unspecified, uncomplicated; Z95.1 Presence of aortocoronary bypass graft; Z88.6 Allergy status to analgesic agent
CPT/HCPCS: 90837; 99281; 99282

== ENCOUNTER 2017-10-02 13:04 | Emergency (ER) | payer OTHER ==
[~2017-10-02] VITALS: Ht 165.1 cm; Wt 67.7 kg
[2017-10-02 14:25] LABS: HEMATOCRIT 37.2 % (36.0-46.0); HEMOGLOBIN 12.5 G/DL (11.9-15.5); MCH 31.7 PG (29.0-34.0); MCHC 33.6 G/DL (30.0-36.0); MCV 94.4 FL (83-99); PLATELET COUNT 234 K/uL (156-360); RBC DIS.WIDTH-CV 13.4 % (11.8-14.6); RBC DIS.WIDTH-SD 46.2 % (39-53); RED BLOOD COUNT 3.94 M/uL (3.80-5.20)
[2017-10-02 14:33] LABS: CHLORIDE 101 mEq/L (99-109); POTASSIUM 3.7 mEq/L (3.7-5.4); SODIUM 142 mEq/L (136-147)
[2017-10-02 14:36] LABS: GLUCOSE 91 mg/dL (70-99); TOTAL PROTEIN 6.9 g/dL (6.4-8.3)
[2017-10-02 14:37] LABS: TOTAL BILIRUBIN 0.2 mg/dL (0.0-1.0)
[2017-10-02 14:38] LABS: SERUM ETHYL ALCOHOL < 10 mg/dL
[2017-10-02 14:39] LABS: ALKALINE PHOSPHATASE 109 IU/L (3-129); CREATININE 0.7 mg/dL (0.6-1.3); GFR ESTIMATE (CALCULATED) > 59 mL/min/
[2017-10-02 14:40] LABS: UREA NITROGEN (BUN) 13 mg/dL (9-23)
[2017-10-02 14:41] LABS: AST (GOT) 23 IU/L (2-34)
[2017-10-02 14:42] LABS: ALT (GPT) 16 IU/L (3-49)
[2017-10-02 14:49] LABS: QUANTITATIVE HCG < 4.0 MIU/ML
[2017-10-02 18:02] VITALS: BP 126/82
== END 2017-10-02 18:03 | disposition home or self-care (01) ==
LOC: EME 13:04
PROVIDERS: Emergency Medicine
DX: F32.9 Major depressive disorder, single episode, unspecified (principal); K21.9 Gastro-esophageal reflux disease without esophagitis; J45.909 Unspecified asthma, uncomplicated; I69.351 Hemiplegia and hemiparesis following cerebral infarction affecting right dominant side; F41.9 Anxiety disorder, unspecified; F31.9 Bipolar disorder, unspecified; F17.200 Nicotine dependence, unspecified, uncomplicated; Z79.891 Long term (current) use of opiate analgesic; Z95.1 Presence of aortocoronary bypass graft; Z86.718 Personal history of other venous thrombosis and embolism; Z59.0 Homelessness; Z87.442 Personal history of urinary calculi; Z86.73 Personal history of transient ischemic attack (TIA), and cerebral infarction without residual deficits; Z88.6 Allergy status to analgesic agent; Z88.5 Allergy status to narcotic agent
CPT/HCPCS: 80053; 81003; 84702; 85027; 90839; 99281; 99284; G0480

== ENCOUNTER 2017-11-20 11:26 | Emergency (ER) | payer OTHER ==
[~2017-11-20] VITALS: Ht 165.1 cm; Wt 64.7 kg
[2017-11-20 15:43] LABS: CHLORIDE 101 mEq/L (99-109); POTASSIUM 3.2 mEq/L (3.7-5.4); SODIUM 140 mEq/L (136-147)
[2017-11-20 15:45] LABS: GLUCOSE 100 mg/dL (70-99)
[2017-11-20 15:48] LABS: CREATININE 0.8 mg/dL (0.6-1.3); GFR ESTIMATE (CALCULATED) > 59 mL/min/
[2017-11-20 15:49] LABS: UREA NITROGEN (BUN) 13 mg/dL (9-23)
[2017-11-20 16:45] LABS: HEMATOCRIT 38.4 % (36.0-46.0); HEMOGLOBIN 13.3 G/DL (11.9-15.5); MCH 32.3 PG (29.0-34.0); MCHC 34.6 G/DL (30.0-36.0); MCV 93.2 FL (83-99); PLATELET COUNT 245 K/uL (156-360); RBC DIS.WIDTH-CV 13.3 % (11.8-14.6); RBC DIS.WIDTH-SD 45.2 % (39-53); RED BLOOD COUNT 4.12 M/uL (3.80-5.20); WHITE BLOOD COUNT 6.2 K/uL (4.1-10.2)
[2017-11-20 17:10] LABS: QUANTITATIVE HCG < 4.0 MIU/ML
[2017-11-20] MEDS ORDERED: PERCOCET 5/31 TABLET PO (19:47)
[2017-11-20 20:44] VITALS: BP 118/65
== END 2017-11-20 20:44 | disposition home or self-care (01) ==
LOC: EME 11:26
PROVIDERS: Physician Assistant
DX: S00.83XA Contusion of other part of head, initial encounter (principal); H11.32 Conjunctival hemorrhage, left eye; S00.12XA Contusion of left eyelid and periocular area, initial encounter; T71.193A Asphyxiation due to mechanical threat to breathing due to other causes, assault, initial encounter; S39.012A Strain of muscle, fascia and tendon of lower back, initial encounter; S06.9X9A Unspecified intracranial injury with loss of consciousness of unspecified duration, initial encounter; M54.2 Cervicalgia; Y04.0XXA Assault by unarmed brawl or fight, initial encounter; J32.0 Chronic maxillary sinusitis; I69.951 Hemiplegia and hemiparesis following unspecified cerebrovascular disease affecting right dominant side; Z95.1 Presence of aortocoronary bypass graft; Z86.718 Personal history of other venous thrombosis and embolism; F17.200 Nicotine dependence, unspecified, uncomplicated
CPT/HCPCS: 70450; 70486; 70498; 72100; 80048; 84702; 85027; 99281; 99285

== ENCOUNTER 2017-12-13 21:26 | Emergency (ER) | payer OTHER ==
[~2017-12-13] VITALS: Ht 165.1 cm; Wt 60.6 kg
[2017-12-13 23:24] LABS: HEMATOCRIT 36.8 % (36.0-46.0); HEMOGLOBIN 12.5 G/DL (11.9-15.5); MCH 31.7 PG (29.0-34.0); MCV 93.4 FL (83-99); PLATELET COUNT 288 K/uL (156-360); RBC DIS.WIDTH-CV 13.3 % (11.8-14.6); RBC DIS.WIDTH-SD 45.5 % (39-53); RED BLOOD COUNT 3.94 M/uL (3.80-5.20); WHITE BLOOD COUNT 10.9 K/uL (4.1-10.2)
[2017-12-13 23:38] LABS: ALBUMIN 4.4 g/dL (3.2-4.8); CHLORIDE 100 mEq/L (99-109); POTASSIUM 3.6 mEq/L (3.7-5.4); SODIUM 140 mEq/L (136-147)
[2017-12-13 23:41] LABS: GLUCOSE 92 mg/dL (70-99)
[2017-12-13 23:42] LABS: TOTAL BILIRUBIN 0.4 mg/dL (0.0-1.0)
[2017-12-13 23:43] LABS: SERUM ETHYL ALCOHOL < 10 mg/dL
[2017-12-13 23:44] LABS: ALKALINE PHOSPHATASE 117 IU/L (3-129); CREATININE 0.8 mg/dL (0.6-1.3); GFR ESTIMATE (CALCULATED) > 59 mL/min/
[2017-12-13 23:45] LABS: UREA NITROGEN (BUN) 17 mg/dL (9-23)
[2017-12-13 23:46] LABS: AST (GOT) 36 IU/L (2-34)
[2017-12-13 23:47] LABS: ALT (GPT) 24 IU/L (3-49)
[2017-12-14 01:52] VITALS: BP 123/74
== END 2017-12-14 01:53 | disposition home or self-care (01) ==
LOC: EME 21:26
PROVIDERS: Emergency Medicine
DX: F43.0 Acute stress reaction (principal); F31.9 Bipolar disorder, unspecified; H60.92 Unspecified otitis externa, left ear; F41.9 Anxiety disorder, unspecified; F32.9 Major depressive disorder, single episode, unspecified; K21.9 Gastro-esophageal reflux disease without esophagitis; J45.909 Unspecified asthma, uncomplicated; F17.200 Nicotine dependence, unspecified, uncomplicated; Z87.442 Personal history of urinary calculi; Z86.73 Personal history of transient ischemic attack (TIA), and cerebral infarction without residual deficits; Z95.1 Presence of aortocoronary bypass graft; Z86.718 Personal history of other venous thrombosis and embolism; Z79.891 Long term (current) use of opiate analgesic; Z88.6 Allergy status to analgesic agent; Z88.5 Allergy status to narcotic agent
CPT/HCPCS: 80053; 81025; 85027; 90837; 99281; 99285; G0480